=== PATIENT | male | born 1965 | race Hispanic/Latino ===

== ENCOUNTER 2016-09-13 16:33 | Emergency (ER) | payer BC ==
[~2016-09-13] VITALS: Ht 180.3 cm; Wt 99.7 kg
[~2016-09-13 16:33] MED LIST: ASPIRIN325 MG PO; AZOR 10/40 M1 TABLET PO; BYSTOLIC10 MG PO; HYDROCHLOROTHIA25 MG PO; bystolic
[2016-09-13] MEDS ORDERED: CARVEDILOL12.5 MG PO (17:08)
[2016-09-13] MEDS ORDERED: LISINOPRIL20 MG PO (17:08)
[2016-09-13] MEDS ORDERED: PANTOPRAZOLE SO40 MG PO (17:10)
[2016-09-13] MEDS ORDERED: JANTOVEN2 MG PO (17:10)
[2016-09-13] MEDS ORDERED: LEVETIRACETAM750 MG PO (17:11)
[2016-09-13] MEDS ORDERED: ATORVASTATIN CA80 MG PO (17:11)
[2016-09-13] MEDS ORDERED: HYDROCHLOROTH12.5 M3 PO (17:15)
[2016-09-13 17:40] LABS: HEMATOCRIT 40.3 % (38.0-50.0); MCH 31.8 PG (29.0-34.0); MCHC 35.5 G/DL (30.0-36.0); MCV 89.6 FL (86-99); MEAN PLAT.VOLUME 10.6 uM^3 (9.0-12.4); NRBC (%) 0.3 /100 WBC (0-0); PLATELET COUNT 225 K/uL (156-360); RBC DIS.WIDTH-CV 11.3 % (11.8-14.6); RBC DIS.WIDTH-SD 36.5 % (39-53); WHITE BLOOD COUNT 7.1 K/uL (4.1-10.2)
[2016-09-13 17:54] LABS: INTER. NORMALIZED RATIO 2.3; PROTHROMBIN TIME 23.9 (9.2-11.2)
[2016-09-13 17:58] LABS: CHLORIDE 105 mEq/L (99-109); POTASSIUM 3.6 mEq/L (3.7-5.4); SODIUM 139 mEq/L (136-147)
[2016-09-13 18:00] LABS: GLUCOSE 90 mg/dL (70-99)
[2016-09-13 18:01] LABS: ANION GAP 8 MEQ/L (2-14)
[2016-09-13 18:02] LABS: TOTAL BILIRUBIN 0.8 mg/dL (0.0-1.0)
[2016-09-13 18:04] LABS: ALKALINE PHOSPHATASE 25 IU/L (3-129); GFR ESTIMATE (CALCULATED) > 59 mL/min/; TROP-I INTERPRETATION NEGATIVE; TROPONIN-I < 0.01 ng/mL (0.0-0.30)
[2016-09-13 18:05] LABS: UREA NITROGEN (BUN) 16 mg/dL (9-23)
[2016-09-13 18:06] LABS: DIRECT BILIRUBIN 0.3 mg/dL (0.0-0.3)
[2016-09-13 18:07] LABS: CREATINE KINASE 238 IU/L (1-294); LIPASE 34 U/L (1.0-51.0); TOTAL CK 238 IU/L (1-294)
[2016-09-13 18:14] LABS: CK-MB 1.3 ng/mL (0.0-4.9)
[2016-09-13 19:20] VITALS: BP 171/95
== END 2016-09-13 19:28 | disposition home or self-care (01) ==
LOC: EME 16:33
PROVIDERS: Emergency Medicine
DX: E86.0 Dehydration (principal); J45.909 Unspecified asthma, uncomplicated; I10 Essential (primary) hypertension; Z87.442 Personal history of urinary calculi; K21.9 Gastro-esophageal reflux disease without esophagitis; Z86.73 Personal history of transient ischemic attack (TIA), and cerebral infarction without residual deficits
CPT/HCPCS: 80048; 80076; 82550; 82553; 83690; 84484; 85027; 85610; 99281; 99285; J7030